=== PATIENT | male | born 2000 | race Two or more races ===

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

== ENCOUNTER 2021-02-23 00:31 | Emergency (ER) | payer MEDICAID ==
--- OUTSIDE RECORDS SUMMARY | 2021-02-23 00:36 | EXTERNAL MEDICAL SUMMARY RPT | Continuity of Care Document ---
:2000 Demographics Phone Unavailable Preferred Language Unknown Marital Status Unknown Anglican Affiliation Unknown Race Unknown Ethnic Group Unknown Author Organization [facility] Address [address] [place] [address] Phone Allergies Encounters Medications Problems Results
--- OUTSIDE RECORDS SUMMARY | 2021-02-23 00:41 | EXTERNAL MEDICAL SUMMARY RPT | Continuity of Care Document ---
:2000 Demographics Phone Unavailable Preferred Language Unknown Marital Status Unknown Evangelical Affiliation Unknown Race Unknown Ethnic Group Unknown Author Organization [facility] Address [address] [place] [address] Phone Allergies Encounters Medications Problems Results
== END 2021-02-23 00:35 | disposition left against medical advice (07) ==
LOC: ED 00:31
DX: Z53.21 Procedure and treatment not carried out due to patient leaving prior to being seen by health care provider (principal)

== ENCOUNTER 2021-02-23 02:05 | Emergency (ER) | payer MEDICAID ==
--- OUTSIDE RECORDS SUMMARY | 2021-02-23 02:08 | EXTERNAL MEDICAL SUMMARY RPT | Continuity of Care Document ---
:2000 Demographics Phone Unavailable Preferred Language Unknown Marital Status Unknown Sikhism Affiliation Unknown Race Unknown Ethnic Group Unknown Author Organization [facility] Address [address] [place] [address] Phone Allergies Encounters Medications Problems Results
--- OUTSIDE RECORDS SUMMARY | 2021-02-23 02:37 | EXTERNAL MEDICAL SUMMARY RPT | Continuity of Care Document ---
:2000 Demographics Phone Unavailable Preferred Language Unknown Marital Status Unknown Holiness Affiliation Unknown Race Unknown Ethnic Group Unknown Author Organization [facility] Address [address] [place] [address] Phone Allergies Encounters Medications Problems Results
--- NOTE | 2021-02-23 02:49 | ED Physician Documentation ---
PD HPI UPPER EXT INJURY - Stated complaint Stated Complaint: R HAND INJ - Chief complaint Chief Complaint: MHE - History obtained from History obtained from: Patient - Additonal information Additional information: Patient comes emergency department chief complaint of right hand injury after punching a sign in the parking lot. The patient states he was feeling frustrated and has had a rough day, and then "somebody hurt me really bad". The patient had checked in earlier, stating that he took up to 12 Tylenol at home around 1999 yesterday. The patient states that he is not even sure that he took 12 and is certain he took no more than 12. He does not know if these were extra strength or regular tablets. Patient states that he is not suicidal Currently, but states that he was feeling upset at the time he took the pills and wanted to harm himself though he is not sure that he actually wanted to kill himself. Patient states he has not had any feeling of illness since taking the pills. No nausea or vomiting. No abdominal pain. Patient states that he did not take anything else. He denies history of suicidal ideation or attempt. No other complaints at this time. Patient states he does not have any family nearby but does have friends. He has a place to live in [place] and states that this point, he is tired and just wants to go home and sleep. Review of Systems Ten Systems: 10 systems reviewed and negative Constitutional: reports: Reviewed and negative Eyes: reports: Reviewed and negative Ears: reports: Reviewed and negative Nose: reports: Reviewed and negative Throat: reports: Reviewed and negative Cardiac: reports: Reviewed and negative Respiratory: reports: Reviewed and negative GI: reports: Reviewed and negative : reports: Reviewed and negative Skin: reports: Reviewed and negative Musculoskeletal: reports: Reviewed and negative Neurologic: reports: Reviewed and negative Psychiatric: reports: Reviewed and negative Endocrine: reports: Reviewed and negative Immunocompromised: reports: Reviewed and negative PD PAST MEDICAL HISTORY - Past Medical History Past Medical History: Yes GI: GERD : Other Psych: Depression, Anxiety, ADD/ADHD, Post traumatic stress disorder Other Past Medical History: Testicular Torsion - Past Surgical History Past Surgical History: Yes - Present Medications Home Medications: Ambulatory Orders Medication Instructions Recorded Confirmed No Known Home Medications 02/23/21 02/23/21 - Allergies Allergies/Adverse Reactions: Allergies Allergy/AdvReac Type Severity Reaction Status Date / Time No Known Drug Allergies Allergy Verified 02/23/21 02:22 - Social History Does the pt smoke?: No Smoking Status: Never smoker Does the pt drink ETOH?: No Does the pt have substance abuse?: No - Immunizations Immunizations are current?: Yes - POLST Patient has POLST: No Results - Vitals Vitals: Vital Signs - 24 hr 02/23/21 02/23/21 02:10 03:10 Temperature 36.4 C L 36.3 C L Heart Rate 46 L 50 L Respiratory 14 24 Rate Blood Pressure 114/63 118/66 O2 Saturation 100 99 Oxygen O2 Source Room air - Rads (name of study) R hand XR Radiology: Final report received, EMP read indepedently, See rad report (neg) PD MEDICAL DECISION MAKING - ED course Complexity details: reviewed results, re-evaluated patient, considered differential, d/w patient ED course: The patient's x-ray series was negative for fracture. I calculated potential total ingested milligrams of Tylenol based on the maximum number of pills the patient felt he would have taken, and found that with either 325 mg tablets or 500 mg tablets, the patient would not have reached toxic single-dose threshold. The patient at this point was not feeling suicidal. He had refused to have any blood drawn in the emergency department. I discussed with him that while he is unlikely to have had a toxic ingestion tonight, it is very important that he gets help his if he is feeling depressed to this point again. I have urged him to come to the emergency department rather than trying to harm himself. Patient is agreeable to the plan. He states he does have friends who can help him and be a support to him. We have discussed the usual indications for return. Departure - Departure Disposition: 01 Home, Self Care Clinical Impression: Reaction, situational, acute, to stress Hand contusion Qualifiers: Encounter type: initial encounter Laterality: right Qualified Code(s): S60.221A - Contusion of right hand, initial encounter Condition: Stable Instructions: ED Contusion Hand, ED Depression Comments: Your x-ray actually looks good and does not show any broken bones in your hands. It is very important that you take all medications only as directed. While the amount of Tylenol you reported taking tonight is not generally enough to cause toxicity, Tylenol can do a lot of damage in a delayed fashion, and it is very important if you are feeling bad enough to try to harm yourself again, that you come to the emergency department for help before deciding to take excess medication. You have declined liver function testing tonight. If you begin to feel ill, you should return immediately to the emergency department for further evaluation. Discharge Date/Time: 02/23/21 03:12
[2021-02-23 03:23] VITALS: BP 118/66
--- NOTE | 2021-02-23 08:25 | XRAY Report ---
PROCEDURE: Hand 3 View RT INDICATIONS: Punchedd a metal sign/injured R hand TECHNIQUE: 3 views of the hand(s) acquired. COMPARISON: None FINDINGS: Bones: No fractures or dislocations. No suspicious bony lesions. Soft tissues: No suspicious soft tissue calcifications. IMPRESSION: No acute right hand fracture or dislocation. No discrepancies. Reviewed by: Fabrice Van MD on 02/23/2021 8:24 AM PDT Approved by: Fabrice Van MD on 02/23/2021 8:24 AM PDT Station ID: [id number]
== END 2021-02-23 03:12 | disposition home or self-care (01) ==
LOC: ED 02:05
DX: F43.0 Acute stress reaction (principal); T39.1X2A Poisoning by 4-Aminophenol derivatives, intentional self-harm, initial encounter; S60.221A Contusion of right hand, initial encounter; W22.09XA Striking against other stationary object, initial encounter; Y92.481 Parking lot as the place of occurrence of the external cause; F32.9 Major depressive disorder, single episode, unspecified
CPT/HCPCS: 99283; 99284

== ENCOUNTER 2021-10-14 13:38 | Emergency (ER) | payer MEDICAID ==
[2021-10-14 13:47] VITALS: BP 131/65
--- NOTE | 2021-10-14 14:25 | ED Physician Documentation ---
PD HPI LOWER EXT INJURY - Stated complaint Stated Complaint: L ANKLE PX - Chief complaint Chief Complaint: Trauma Ext - History obtained from History obtained from: Patient - History of Present Illness PD HPI LOW EXT INJURY LOCATION: Left, Ankle Type of injury: Twist (inversion) Timing - onset: How many days ago (few) Timing - duration: Days (few) Timing - details: Abrupt onset, Now resolved (improved mostly and he feels able to walk and stand. Has some pain still with inversion.) Worsened by: Moving, Palpating (anterolateral proximal foot.) Associated symptoms: No: Weakness, Numbness, Swelling Review of Systems Constitutional: denies: Fever, Chills Nose: denies: Rhinorrhea / runny nose, Congestion Throat: denies: Sore throat Respiratory: denies: Cough Skin: denies: Abrasion (s), Laceration (s) Neurologic: denies: Focal weakness, Numbness PD PAST MEDICAL HISTORY - Past Medical History Cardiovascular: None Respiratory: None GI: GERD : Other Psych: Depression, Anxiety, ADD/ADHD, Post traumatic stress disorder Musculoskeletal: None - Past Surgical History Past Surgical History: Yes - Present Medications Home Medications: Ambulatory Orders Medication Instructions Recorded Confirmed No Known Home Medications 02/23/21 10/14/21 - Allergies Allergies/Adverse Reactions: Allergies Allergy/AdvReac Type Severity Reaction Status Date / Time No Known Drug Allergies Allergy Verified 10/14/21 13:47 - Social History Does the pt smoke?: No Smoking Status: Never smoker Does the pt drink ETOH?: No Does the pt have substance abuse?: No - Immunizations Immunizations are current?: Yes - POLST Patient has POLST: No PD ED PE NORMAL - Vitals Vital signs reviewed: Yes - General General: Alert and oriented X 3, No acute distress, Well developed/nourished - Derm Derm: Normal color, Warm and dry - Extremities Extremities: Other (left ankle without tenderness at malleoli. No effusion nor deformity. ) - Neuro Neuro: Alert and oriented X 3, No motor deficit, No sensory deficit, Normal speech Results - Vitals Vitals: Vital Signs - 24 hr 10/14/21 13:42 Temperature 36.1 C L Heart Rate 86 Respiratory 16 Rate Blood Pressure 131/65 H O2 Saturation 98 Oxygen O2 Source Room air PD MEDICAL DECISION MAKING - ED course Complexity details: considered differential (sprain without clinical signs fracture. 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 You could use some ankle support to guard the ligaments in the foot and ankle over the next week or so. Tylenol ibuprofen as needed for pains. Activity as tolerated. Recheck if not better over the next week or 2. Forms: Activity restrictions Discharge Date/Time: 10/14/21 14:58
== END 2021-10-14 14:58 | disposition home or self-care (01) ==
LOC: ED 13:38
DX: S93.402A Sprain of unspecified ligament of left ankle, initial encounter (principal); X50.1XXA Overexertion from prolonged static or awkward postures, initial encounter; Y93.67 Activity, basketball
CPT/HCPCS: 99282

== ENCOUNTER 2021-11-22 23:32 | Emergency (ER) | payer MEDICAID ==
[2021-11-23 00:46] LABS: BASOPHILS % (AUTO) 0.3 %; EOSINOPHILS % (AUTO) 0.3 %; HGB - HEMOGLOBIN 15.7 g/dL (14.0-18.0); LYMPHOCYTES # (AUTO) 1.9 10^3/uL (1.5-3.5); LYMPHOCYTES % (AUTO) 20.1 %; MEAN CORPUSCULAR HEMOGLOBIN 29.3 pg (27.0-31.0); MEAN CORPUSCULAR HGB CONC 34.1 g/dL (32.0-36.0); MEAN PLATELET VOLUME 11.2 fL (7.4-11.4); MONOCYTES # (AUTO) 0.5 10^3/uL (0.0-1.0); MONOCYTES % (AUTO) 4.9 %; PLT - PLATELET COUNT 215 10^3/uL (130-450); RED BLOOD COUNT 5.35 10^6/uL (4.70-6.10); RED CELL DISTRIBUTION WIDTH 12.1 % (12.0-15.0); WHITE BLOOD COUNT 9.4 x10^3/uL (4.8-10.8)
[2021-11-23 01:02] LABS: ALBUMIN 4.8 g/dL (3.2-5.5); ALBUMIN/GLOBULIN RATIO 1.8 (1.0-2.2); BILIRUBIN,TOTAL 0.5 mg/dL (0.2-1.0); CALCIUM 8.8 mg/dL (8.5-10.3); POTASSIUM 3.1 mmol/L (3.5-5.0); TOTAL PROTEIN 7.5 g/dL (6.7-8.2)
[2021-11-23 01:23] LABS: CK- CREATINE KINASE 120 IU/L (22-269); ETOH - ETHANOL 135.9 mg/dL
[2021-11-23 01:27] LABS: CRP - C-REACTIVE PROTEIN < 1.0 mg/dL (0-1.0)
--- NOTE | 2021-11-23 02:19 | ED Physician Documentation ---
History of Present Illness - Stated complaint Stated Complaint: CHEST PAIN,HBD; SOA, SYNCOPY - Chief complaint Chief Complaint: General - History obtained from History obtained from: Patient - History of Present Illness Timing: Today Radiates to: no radiation Improved by: no ameliorating factors - Additonal information Additional information: patient brought to ED by friends; he is intoxicated and so cannot contribute to H+P. Review of Systems Unable to obtain: Other (limited ROS (below) obtained on reevaluation when he was more awake and alert enough to do so) Cardiac: reports: Chest pain / pressure Respiratory: reports: Reviewed and negative GI: reports: Reviewed and negative PD PAST MEDICAL HISTORY - Past Medical History Cardiovascular: None Respiratory: None GI: GERD : Other Psych: Depression, Anxiety, ADD/ADHD, Post traumatic stress disorder Musculoskeletal: None - Past Surgical History Past Surgical History: Yes - Present Medications Home Medications: Ambulatory Orders Medication Instructions Recorded Confirmed No Known Home Medications 02/23/21 10/14/21 - Allergies Allergies/Adverse Reactions: Allergies Allergy/AdvReac Type Severity Reaction Status Date / Time capsaicin Allergy Anaphylaxis Verified 11/22/21 23:51 - Social History Does the pt smoke?: No Smoking Status: Never smoker Does the pt drink ETOH?: No Does the pt have substance abuse?: No - Immunizations Immunizations are current?: Yes - POLST Patient has POLST: No PD ED PE NORMAL - Vitals Vital signs reviewed: Yes - General General: Alert and oriented X 3, No acute distress, Well developed/nourished - Neck Neck: Supple, no meningeal sign - Cardiac Cardiac: RRR, No murmur, No gallop, No rub - Respiratory Respiratory: No respiratory distress, Clear bilaterally - Abdomen Abdomen: Soft, Non tender, Non distended - Extremities Extremities: No deformity, No tenderness to palpate, Normal ROM s pain - Neuro Neuro: Alert and oriented X 3 Eye Opening: Spontaneous Motor: Obeys Commands Verbal: Oriented GCS Score: 15 - Psych Psych: Normal mood, Normal affect Results - Vitals Vitals: Oxygen O2 Source Room air - Labs Labs: Laboratory Tests 11/22/21 11/22/21 11/22/21 23:54 23:54 23:54 WBC 9.4 RBC 5.35 Hgb 15.7 Hct 46.0 MCV 86.0 MCH 29.3 MCHC 34.1 RDW 12.1 Plt Count 215 MPV 11.2 Neut # (Auto) 7.0 H Lymph # (Auto) 1.9 [place] # (Auto) 0.5 Eos # (Auto) 0.0 Baso # (Auto) 0.0 Absolute Nucleated RBC 0.00 Nucleated RBC % 0.0 ESR Sodium 136 Potassium 3.1 L Chloride 99 L Carbon Dioxide 26 Anion Gap 11.0 BUN 8 Creatinine 1.0 Estimated GFR (MDRD) 95 Glucose 100 Calcium 8.8 Total Bilirubin 0.5 AST 19 ALT 13 Alkaline Phosphatase 58 Total Creatine Kinase CK-MB (CK-2) Troponin I High Sens 2.4 C-Reactive Protein Total Protein 7.5 Albumin 4.8 Globulin 2.7 Albumin/Globulin Ratio 1.8 Lipase 32 Ethyl Alcohol 11/22/21 11/22/21 11/22/21 23:54 23:54 23:54 WBC RBC Hgb Hct MCV MCH MCHC RDW Plt Count MPV Neut # (Auto) Lymph # (Auto) [place] # (Auto) Eos # (Auto) Baso # (Auto) Absolute Nucleated RBC Nucleated RBC % ESR 1 Sodium Potassium Chloride Carbon Dioxide Anion Gap BUN Creatinine Estimated GFR (MDRD) Glucose Calcium Total Bilirubin AST ALT Alkaline Phosphatase Total Creatine Kinase 120 CK-MB (CK-2) 1.3 Troponin I High Sens C-Reactive Protein < 1.0 Total Protein Albumin Globulin Albumin/Globulin Ratio Lipase Ethyl Alcohol 135.9 PD MEDICAL DECISION MAKING - ED course Complexity details: reviewed results, re-evaluated patient, considered differential, d/w patient ED course: results d/w patient once he became more awake and alert. He is calm , cooperative, polite, and says he feel embarrassed having been brought here for drinking too much alochol. We discussed test results, advised to refrain from alcohol, and return to ED if he feels unsafe at home or has other emergent issues he would like to have addressed. Otherwise , follow up with PMD Departure - Departure Disposition: 01 Home, Self Care Clinical Impression: Alcohol intoxication, Hypokalemia Condition: Good Instructions: ED Alcohol Intoxication, ED Potassium Deficiency Follow-Up: Brannon Leavitt MD [Provider Admit Priv/Credential] - Comments: Your blood tests were mostly unremarkable which is reassuring. Your alcohol level was high. Your potassium was a little low, for which you were given a dose of potassium orally. Follow up with your primary care provider within the next 1-2 weeks; they might recommend having the potassium level rechecked. Discharge Date/Time: 11/23/21 03:16
[2021-11-23] MEDS ORDERED: POTASSIUM CHLORIDE 20 MEQ TABLET PO STA (02:40)
[2021-11-23 03:03] VITALS: BP 111/63
== END 2021-11-23 03:16 | disposition home or self-care (01) ==
LOC: ED 23:32
DX: E87.6 Hypokalemia (principal); F10.129 Alcohol abuse with intoxication, unspecified; Y90.6 Blood alcohol level of 120-199 mg/100 ml
CPT/HCPCS: 36415; 80053; 80320; 82550; 82553; 83690; 84484; 85025; 85651; 86140; 93005; 99282; 99284; A9270